=== PATIENT | female | born 1975 | race Caucasian/White ===

== ENCOUNTER → 2024-12-01 | Day surgery (SDC) | payer MEDICAID ==
[~2024-12-01] MED LIST: ATOR10TA PO; FERR325T6 PO; LIDOCAINE HCL/PF 1% 10 MG/ML 5ML VIAL ONE; SODIUM BICARBONATE 4% 2.4MEQ/5ML VIAL IV ONE
== END | disposition home or self-care (01) ==
LOC: RAD 08:32 → EDUNIT# 09:00
PROVIDERS: ATTEND Surgery Surgical Oncology
DX: R92.8 Other abnormal and inconclusive findings on diagnostic imaging of breast (principal); Z79.899 Other long term (current) drug therapy; Z88.8 Allergy status to other drugs, medicaments and biological substances; Z98.890 Other specified postprocedural states
CPT/HCPCS: 19281; J2003; J3490; A4648

== ENCOUNTER → 2024-12-02 | Day surgery (SDC) | payer MEDICAID ==
[~2024-12-02] VITALS: Ht 154.9 cm; Wt 66.7 kg
[~2024-12-02] MED LIST changes: +BALANCED SALT IRRIG SOLN 15ML ONE; +BUPIVACAINE HCL/PF 0.5% (5MG/ML) 10ML ONE; +CEFAZOLIN SODIUM 1000MG/VIAL ONE; +FENTANYL CITRATE/PF 50MCG/ML 2ML VIAL ONE; +HYDRALAZINE 20MG/ML VIAL ONE; +HYDROMORPHONE HCL/PF 1MG/ML INJ ONE; +LABETALOL 5MG/ML 20ML VIAL IV ONE; +LIDOCAINE HCL/EPINEPHRINE 1%-EPI 1:100,000 20ML VIAL ONE; -LIDOCAINE HCL/PF 1% 10 MG/ML 5ML VIAL ONE; +MIDAZOLAM HCL 2 MG/2 ML VIAL ONE; +ONDANSETRON HCL 4MG/2ML INJ ONE; +PROPOFOL 200MG/20ML VIAL IV ONE; -SODIUM BICARBONATE 4% 2.4MEQ/5ML VIAL IV ONE; +SODIUM CHLORIDE 0.9% 1,000 ML IV SCH
[2024-12-02 08:33] LABS: UCG KIT LOT# 907863; UCG SCREEN NEGATIVE
[2024-12-02 13:11] VITALS: BP 127/71; PULSE 76; RESP 14
[2024-12-02] MEDS: HYDROMORPHONE HCL/PF 1MG/ML INJ IV PRN (13:11)
[2024-12-02] MEDS: ONDANSETRON HCL 4MG/2ML INJ IV PRN (14:29)
== END | disposition home or self-care (01) ==
LOC: OR 07:42
PROVIDERS: ATTEND Surgery Surgical Oncology
DX: D24.2 Benign neoplasm of left breast (principal); N64.89 Other specified disorders of breast; E78.5 Hyperlipidemia, unspecified; K21.9 Gastro-esophageal reflux disease without esophagitis; Z86.2 Personal history of diseases of the blood and blood-forming organs and certain disorders involving the immune mechanism; Z79.899 Other long term (current) drug therapy; Z98.890 Other specified postprocedural states; Z88.8 Allergy status to other drugs, medicaments and biological substances
CPT/HCPCS: 19125; 76098; 81025; 82962; 88305; J1171; J3010; J0665; J0690; J0360; J3490; J2004; J2250; J2405; J2704; J7030